=== PATIENT | female | born 1970 | race Asian ===

== ENCOUNTER 2021-02-25 13:16 | Outpatient (REF) | payer OTHER, SELFPAY ==
--- NOTE | ~2021-02-25 | MM_ITS ---
EXAMINATION: MM SCREENING DIGITAL BREAST TOMOSYNTHESIS, BILATERAL CLINICAL INFORMATION: Screening. Asymptomatic. 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 The lifetime risk of breast cancer based on the Tyrer-Cuzick Model is 7%. COMPARISON: Mammography: 02/03/2020, 01/16/2020, 01/03/2019, 01/02/2018, 06/30/2017 TECHNIQUE: Digital breast tomosynthesis is performed in both the craniocaudal and mediolateral oblique views along with computer-aided detection (CAD). Synthesized 2D images are generated from the tomosynthesis. FINDINGS: The breasts are heterogeneously dense, which may obscure small masses (ACR BI-RADS breast composition Category c). Breast tissue composition borders on average fibroglandular. Parenchymal pattern is similar to prior studies. There is no developing density or interval mass or architectural abnormality. There is a biopsy clip marker overlying stable nodularity posterior 6:30 o'clock left breast. There are some scattered calcifications central anterior right breast similar to prior exams. Stable small intramammary nodes lower outer right breast mid depth. The axilla and skin contours are unremarkable. No significant changes. MM/MM tomosynthesis screening BI IMPRESSION: No significant changes from prior exams. ASSESSMENT: BI-RADS 2: Benign RECOMMENDATION: Routine annual mammography screening. This patient's information was entered into a reminder system with a target due date for their next mammogram.
== END 2021-02-25 13:17 | disposition home or self-care (01) ==
LOC: HO.MAMMO 13:16
PROVIDERS: PCP Hospitalist; Visit Provider Obstetrics & Gynecology
DX: Z12.31 Encounter for screening mammogram for malignant neoplasm of breast (principal)
CPT/HCPCS: 77063; 77067

== ENCOUNTER 2021-06-29 15:09 | Outpatient (REF) | payer OTHER, SELFPAY ==
--- NOTE | ~2021-06-29 | MR_ITS ---
EXAMINATION: MR PELVIS WITHOUT AND WITH CONTRAST CLINICAL INFORMATION: Piriformis syndrome. Right gluteal pain. Radiates to right leg. COMPARISON: None TECHNIQUE: Multiplanar MR imaging was obtained through the pelvis on a 1.5 Charlene magnet before and after intravenous administration of 6.5 mL Gadavist. FINDINGS: Bones and Cartilage: No fracture or malalignment. Hip and sacroiliac joints appear relatively well preserved. 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 Marrow signal is otherwise normal in the pelvis. There is facet arthropathy at L5-S1 with grade 1 anterolisthesis of L5 on S1 (2 mm). Muscles and Tendons: Minimal bilateral hamstring tendinosis and gluteus minimus tendinosis. No tears. The pelvic musculature appears symmetric without focal muscle hypertrophy. There is mild fatty replacement of the anterior aspects of the gluteus minimus muscles bilaterally. Piriformis muscles are normal in size and morphology without atrophy or hypertrophy. Joint Fluid and Bursae: No effusions. Trace bilateral trochanteric bursitis. Neurovascular Structures: Pelvic vasculature appears patent without appreciable aneurysmal dilatation or thrombosis. The lumbosacral plexus appears normal without appreciable sites of impingement. The bilateral sciatic nerves are normal in course, caliber, and signal intensity without significant mass effect produced by surrounding structures on these images. 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 Intrapelvic Soft Tissues: Nabothian cysts at the cervix. There is a small 4 mm cystic focus in the endometrium at the uterine body posteriorly. There is a small 6 mm uterine fibroid. A few cystic foci are partially seen in the liver and of doubtful significance. No recommend imaging followup. MR/MR pelvis wo/w con IMPRESSION: 1. No appreciable findings to indicate a source of right-sided radicular pain within the pelvis. No MRI findings to indicate piriformis syndrome. 2. Facet arthropathy in the lower lumbar spine with grade 1 anterolisthesis of L5 on S1. 3. Minimal bilateral hamstring the gluteus minimus tendinosis. Trace trochanteric bursitis.
== END 2021-06-29 15:10 | disposition home or self-care (01) ==
LOC: HO.MRI 15:09
PROVIDERS: Visit Provider Psychiatry & Neurology Neurology
DX: G57.00 Lesion of sciatic nerve, unspecified lower limb (principal)
CPT/HCPCS: 72197; A9585

== ENCOUNTER 2024-10-15 07:23 | Outpatient (REF) | payer OTHER, SELFPAY ==
--- NOTE | ~2024-10-15 | MR_ITS ---
EXAMINATION: MR BRAIN WITHOUT IV CONTRAST HISTORY: WHITE MATTER CHANGES TECHNIQUE: Sagittal T1, and axial T1, FLAIR, T2, gradient echo, and diffusion weighted MR images of the brain were obtained. COMPARISON: Comparison is made with the prior examination dated 12/13/2018. FINDINGS: Again seen are scattered periventricular and subcortical white matter hyperintensities on the FLAIR and T2-weighted images. These have a similar appearance to the prior study. No definite new lesions are identified. There is no mass effect or midline shift. The ventricular system is normal in size and configuration. No intra or extra-axial fluid collections are identified. There are no foci of restricted diffusion. Normal vascular flow voids are noted in the basilar and carotid arteries. There is mild mucosal thickening in the left maxillary sinus. MR/MR head/brain wo con IMPRESSION: Stable white matter hyperintensities for which demyelinating disease remains in the differential. Other possible etiologies include small vessel ischemic disease, migraine, Lyme disease, and vasculitis. Electronically signed by: Jann Orellana MD 10/15/2024 08:28 AM EDT
--- OUTSIDE RECORDS SUMMARY | 2024-10-15 07:27 | XMS_ITS | Clinical Summary ---
Author Organization [facility] Address [address] [place] [address] Phone Care Team Providers Care Block Stacker Name Role Phone Deborah Mullen MD Primary Care Provider [phone] Allergies Active Allergy Reactions Criticality Noted Date Comments Erythromycin Rash 02/29/2024 Medications escitalopram (LEXAPRO) 5 mg tablet Take 1 tablet (5 mg total) by mouth 1 (one) time each day. Active ibuprofen (ADVIL,MOTRIN) 600 mg tablet Take 1 tablet (600 mg total) by mouth every 6 (six) hours if needed. Active SUMAtriptan (IMITREX) 50 mg tablet Take 1 tablet (50 mg total) by mouth. Active divalproex (DEPAKOTE ER) 250 mg 24 hr tablet Take 1 tablet (250 mg total) by mouth 1 (one) time each day. Do not crush, chew, or split. Active Active Problems Problem Noted Date Diagnosed Date Bilateral leg edema 07/13/2022 Overview (02/29/2024): Last Assessment & Plan: Patient reports chronic leg edema which has been present for about 3 years. She states that leg edema slightly worse on the right side than the left. On physical examination I can appreciate bilateral leg edema which is mild. I have encouraged her to wear compression stockings in efforts to mitigate this edema. We will arrange for a vascular duplex to assess for any significant reflux. I will let her know the results of the study when available. If she has any significant reflux I will refer her to vascular. Premature ventricular beats 03/29/2022 Overview (02/29/2024): Last Assessment & Plan: Patient has history of PVCs. She underwent stress testing in the past which was negative for ischemia. She was started on low-dose metoprolol which improved her symptoms significantly. She is still reporting palpitations occurring about once a week and lasting for about 15 to 20 minutes. She does report some associated shortness of breath when this happens. Given that she had a great response from her low-dose of metoprolol I will increase her metoprolol to 25 mg once a day. She will let me know if she develops any trouble with this increase. Palpitations 02/21/2022 Surgical History Surgery Date Site/Laterality Comments COLONOSCOPY 03/01/2022 PROCEDURE: HISTORICAL COLONOSCOPY; COMMENT: hermorrhoids Medical History Medical History Date Comments GERD without esophagitis 03/28/2022 DX:GERD without esophagitis Neck pain DX:Neck pain Lower back pain DX:Lower back pa in H/O migraine DX:H/O migraine Asthma DX:Asthma Social History Tobacco Use Types Packs/Day Years Used Date Smoking Tobacco: Never Smokeless Tobacco: Never Alcohol Use Standard Drinks/Week Comments Never 0 (1 standard drink = 0.6 oz pur e alcohol) Comments Unknown Sex and Gender Information Value Date Recorded Sex Assigned at Not on file Legal Sex Female 8:59 PM EST Gender Identity Not on file Sexual Orientation Not on file Obstetrics History Last Filed Vital Signs Vital Sign Reading Time Taken Comments Blood Pressure 118/60 02/13/2024 3:29 PM EDT Pulse 75 02/13/2024 3:29 PM EDT Temperature - - Respiratory Rate - - Oxygen Saturation - - Inhaled Oxygen Concentration - - Weight 67.6 kg (149 lb) 04/09/2024 1:53 PM EST Height 157.5 cm (5' 2.01 ) 04/09/2024 1:53 PM ES T Body Mass Index 27.25 04/09/2024 1:53 PM EST Plan of Treatment Health Maintenance Due Date Last Done Comments DTaP,Tdap,and Td Vaccines (1 - Tdap) 1989 Hepatitis B Vaccines (1 of 3 - 19+ 3-dose series) 1989 Cervical Cancer Screening: P ap Smear 08/14/1991 Pneumococcal Vaccine: 50+ Ye ars (1 of 1 - PCV) 2020 Breast Cancer Screening 01/16/2022 01/17/2020 Depression Screening 05/01/2022 HIV Screening 05/01/2022 Hepatitis C Screening 05/01/2022 Social Influencers of Health Screening 05/01/2022 COVID-19 Vaccine (1 - 2023-2 5 season) 2024 Zoster Vaccines (2 of 2) 07/26/2024 05/31/2024 Influenza Vaccine (Season Ended) 2025 Colorectal Cancer Screening: Colonoscopy 03/01/2032 03/01/2022 HIB Vaccines Aged Out No longer eligi ble based on patient's age to complete this topic HPV Vaccines Aged Out No longer eligi ble based on patient's age to complete this topic Hepatitis A Vaccines Aged Out No long er eligible based on patient's age to complete this topic IPV Vaccines Aged Out No longer eligi ble based on patient's age to complete this topic MMR Vaccines Aged Out No longer eligi ble based on patient's age to complete this topic Meningococcal ACWY Vaccine Aged Out N o longer eligible based on patient's age to complete this topic Meningococcal B Vaccine Aged Out No l onger eligible based on patient's age to complete this topic Pneumococcal Vaccine: Pediat rics (0 to 5 Years) and At-Risk Patients (6 to 64 Years) Aged Out No longer eligi ble based on patient's age to complete this topic RSV Immunization Patients Un princess 20 months Aged Out No longer eligible b ased on patient's age to complete this topic Varicella Vaccines Aged Out No longer eligible based on patient's age to complete this topic Procedures Procedure Name Priority Date/Time Associated Diagnosis Comments COLONOSCOPY Routine 03/01/2022 from Last 3 Months or Most Recently Relevant to Health Maintenance Results * Colonoscopy (03/01/2022) Colonoscopy no interpretation , abstracted Anatomical Region Laterality Modality Other Historical Provider MD HEALTH MAINTENANCE Final Result from Last 3 Months or Most Recently Relevant to Health Maintenance Insurance [facility] Care Teams Block Stacker Relationship Specialty Start Date End Date Deborah Mullen MD [address] [place] [address] PCP - General Internal Medicine 06/16/21
== END 2024-10-15 07:24 | disposition home or self-care (01) ==
LOC: HO.MRI 07:23
PROVIDERS: Visit Provider Psychiatry & Neurology Neurology
DX: G93.49 Other encephalopathy (principal)
CPT/HCPCS: 70551

== ENCOUNTER → 2024-10-15 07:30 | Outpatient (BNV) | payer OTHER, SELFPAY | PROVIDERS: Visit Provider Radiology Diagnostic Radiology | DX: R90.82 White matter disease, unspecified (principal) | CPT/HCPCS: 70551 ==